=== PATIENT | male | born 1950 | race Two or more races ===

== ENCOUNTER 2016-06-25 18:14 | Emergency (ER) | payer OTHER, MEDICAID ==
[~2016-06-25] VITALS: Ht 170.2 cm; Wt 83.9 kg
[2016-06-25 18:56] VITALS: BP 141/85
[2016-06-25] MEDS ORDERED: LUMIGAN2.5 ML BOTH EYES (19:03)
[2016-06-25] MEDS ORDERED: ACTOS15 MG ORAL (19:03)
[2016-06-25] MEDS ORDERED: GLUCOTROL XL10 MG ORAL (19:04)
[2016-06-25] MEDS ORDERED: METFORMIN HCL500 M1 ORAL (19:04)
[2016-06-25] MEDS ORDERED: ATORVASTATIN CA40 MG ORAL (19:05)
[2016-06-25] MEDS ORDERED: FARXIGA5 MG PO (19:06)
[2016-06-25] MEDS ORDERED: Methocarbamol 750mg tab ORAL ONE (19:15)
[2016-06-25] MEDS ORDERED: traMADol 50mg tab ORAL ONE (19:15)
[2016-06-25] MEDS ORDERED: TRAMADOL HCL50 MG ORAL (19:25)
[2016-06-25] MEDS ORDERED: IBUPROFEN600 MG ORAL (19:25)
[2016-06-25] MEDS ORDERED: ROBAXIN-750750 MG PO (19:25)
[2016-06-25 19:32] VITALS: BP 141/85
--- NOTE | 2016-06-25 19:35 | Emergency Room Report ---
History of Present Illness General Chief Complaint: Lower Back Pain or Injury Source: Patient (RAJIV HAMMONDS) Present Illness HPI The patient is a 65-year-old male presenting with left lower back pain which occurred 4 days prior at work. The patient states that he slipped on stairs and caught himself before falling but felt a pain in the left lower back. The patient describes the pain as a 10 out of 10 dull/pulling sensation. The patient has tried Tylenol at home which hasn't helped. Patient denies any radiating pain denies numbness or tingling. The patient states that he has been unable to walk normally due to the pain. Patient denies prior injury to this area and denies any other symptoms (RAJIV HAMMONDS) Allergies: Coded Allergies: No Known Allergies (Unverified , 06/25/16) Patient History Past Medical History: see triage record Pertinent Family History: none Reviewed Nursing Documentation: PMH: Agreed, PSxH: Agreed (RAJIV HAMMONDS) Nursing Documentation-PMH Past Medical History: No History, Except For Hx Diabetes: Yes (RAJIV HAMMONDS) Review of Systems All Other Systems: negative except mentioned in HPI (RAJIV HAMMONDS) Physical Exam Vital Signs Date Time Temp Pulse Resp B/P Pulse Ox O2 Delivery O2 Flow Rate FiO2 06/25/16 18:49 99.0 98 16 141/85 93 Room Air Sp02 EP Interpretation: reviewed, normal General Appearance: no apparent distress, alert, GCS 15, non-toxic Head: normocephalic, atraumatic Eyes: bilateral eye PERRL, bilateral eye normal inspection ENT: hearing grossly normal, normal pharynx, no angioedema, normal voice Musculoskeletal: no calf tenderness, decreased range of motion - of back, tender - TTP over paraspinous muscles Neurologic: alert, oriented x3, responsive, motor strength/tone normal, sensory intact, speech normal Psychiatric: judgement/insight normal, memory normal, mood/affect normal, no suicidal/homicidal ideation Reflexes: 3+ bicep (R), 3+ bicep (L), 3+ tricep (R), 3+ tricep (L), 3+ knee (R) , 3+ knee (L) Skin: normal color, no rash, warm/dry, well hydrated Lymphatic: no adenopathy (RAJIV HAMMONDS P.AJuliet) Medical Decision Making [facility]. Burrell is my supervising physician. Patient management was discussed with my supervising physician (RAJIV HAMMONDS) Medicare Attestation The history of Jovanny Saucedo has been reviewed and management options for him have been examined and discussed by Sulaiman Burrell. I have personally examined and interviewed the patient. (SULAIMAN BURRELL M.D.) Diagnostic Impression: Primary Impression: Muscle strain ER Course The patient is a 65-year-old male presenting with left lower back pain which occurred 4 days prior at work Ddx considered include but not limited to sprain/strain, fracture, contusion, sciatica, disc herniation PE: Vitals within normal limits. No apparent distress. Lumbar spine: No obvious deformity. Normal curvature. No midline tenderness. Limited AROM due to pain. There is tenderness to palpation over paraspinous muscles only SILT. Pt given robaxin and tramadol for pain Pt will be ID'ed home with prescription for tramadol, robaxin, and motrin. ER precautions given (RAJIV HAMMONDS P.A.) Last Vital Signs Date Time Temp Pulse Resp B/P Pulse Ox O2 Delivery O2 Flow Rate FiO2 06/25/16 18:56 99.0 98 16 141/85 93 Room Air Status: improved (RAJIV HAMMONDS P.A.) Disposition: HOME, SELF-CARE Condition: Improved Scripts Tramadol Hcl* (ULTRAM*) 50 Mg Tablet 50 MG ORAL Q6H Y for For Pain, #8 TAB 0 Refills Prov: TERZIAN,RAJIV P.A. 06/25/16 Methocarbamol* (ROBAXIN-750*) 750 Mg Tablet 750 MG PO TID, #21 TAB 0 Refills Prov: TERZIAN,RAJIV P.A. 06/25/16 Ibuprofen* (MOTRIN*) 600 Mg Tablet 600 MG ORAL Q8H Y for For Pain, #30 TAB 0 Refills Prov: TERZIAN,RAJIV P.A. 06/25/16 Patient Instructions: Back Pain, Adult, Muscle Strain Additional Instructions: I discussed my findings with the patient. All questions and concerns have been answered. Treatment and medication compliance have been addressed. I advised the patient that they need to follow up with PMD in 3-5 days. Return to ED if pain remains or worsens, numbness or tingling occurs, new rash is noticed, fever is noticed, or if needed for any reason. Patient verbalized understanding of discharge instructions. RAJIV HAMMONDS Jun 25, 2016 19:35 SULAIMAN BURRELL M.D. Jul 01, 2016 07:33
== END 2016-06-25 19:35 | disposition home or self-care (01) ==
LOC: EMR 18:50
DX: S39.012A Strain of muscle, fascia and tendon of lower back, initial encounter (principal); E11.9 Type 2 diabetes mellitus without complications; W18.30XA Fall on same level, unspecified, initial encounter; Y92.9 Unspecified place or not applicable; Y99.8 Other external cause status
CPT/HCPCS: 99284

== ENCOUNTER 2016-09-07 20:52 | Emergency (ER) | payer MEDICARE, MEDICAID ==
[~2016-09-07] VITALS: Ht 170.2 cm; Wt 84.8 kg
[~2016-09-07 20:52] MED LIST: ACTOS15 MG ORAL; ATORVASTATIN CA40 MG ORAL; FARXIGA5 MG PO; GLUCOTROL XL10 MG ORAL; IBUPROFEN600 MG ORAL; LUMIGAN2.5 ML BOTH EYES; METFORMIN HCL500 M1 ORAL; ROBAXIN-750750 MG PO; TRAMADOL HCL50 MG ORAL
[2016-09-07] MEDS ORDERED: XALATAN2.5 ML BOTH EYES (21:26)
--- NOTE | 2016-09-07 21:27 | Emergency Room Report ---
History of Present Illness General Chief Complaint: Medication Refill Source: Patient Present Illness HPI This is a 66-year-old male with a history of glaucoma. 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 He is out of his eye drops. His primary care has not make a referral yet. Patient denies any other symptom. Denies any fever chills denies any nausea vomiting. He called his insurance and was told to come to the ER for the refill medication. Allergies: Coded Allergies: No Known Allergies (Unverified , 06/25/16) Patient History Past Medical History: see triage record, old chart reviewed, DM Past Surgical History: other Pertinent Family History: none Social History: Denies: smoking Immunizations: other Reviewed Nursing Documentation: PMH: Agreed, PSxH: Agreed Nursing Documentation-PMH Hx Diabetes: Yes Review of Systems Eye: Denies: blurred vision, eye pain ENT: Denies: ear pain, nose congestion, throat swelling Respiratory: Denies: cough, shortness of breath Cardiovascular: Denies: chest pain, palpitations Gastrointestinal: Denies: abdominal pain, diarrhea, nausea, vomiting Musculoskeletal: Denies: back pain, joint pain Skin: Denies: rash Neurological: Denies: headache, numbness Endocrine: Denies: increased thirst, increased urine Hematologic/Lymphatic: Denies: easy bruising All Other Systems: negative except mentioned in HPI Physical Exam Vital Signs Date Time Temp Pulse Resp B/P Pulse Ox O2 Delivery O2 Flow Rate FiO2 09/07/16 21:05 98.1 80 18 136/80 98 Room Air vitals normal Sp02 EP Interpretation: reviewed, normal General Appearance: well appearing, no apparent distress, alert Head: normocephalic, atraumatic Eyes: bilateral eye EOMI, bilateral eye PERRL ENT: hearing grossly normal, normal pharynx Neck: full range of motion, supple, no meningismus Respiratory: chest non-tender, lungs clear, normal breath sounds Cardiovascular #1: regular rate, rhythm, no murmur Gastrointestinal: normal bowel sounds, non tender, no mass, no organomegaly, no bruit, non-distended Musculoskeletal: back normal, gait/station normal, normal range of motion Psychiatric: mood/affect normal Skin: warm/dry Medical Decision Making Diagnostic Impression: Primary Impression: Encounter for medication refill ER Course Patient here for refill on his eyedrops. He has no new symptoms. We'll discharge home. Last Vital Signs Date Time Temp Pulse Resp B/P Pulse Ox O2 Delivery O2 Flow Rate FiO2 09/07/16 21:05 98.1 80 18 136/80 98 Room Air Status: unchanged Disposition: HOME, SELF-CARE Condition: Stable Scripts Latanoprost* (XALATAN*) 2.5 Ml Drops 1 DROP BOTH EYES BEDTIME, #2.5 ML 0 Refills Prov: BARON COSBY M.D. 09/07/16 Patient Instructions: Medicine Refill at the Emergency Department Additional Instructions: Followup with your DrJuliet in 7 days. Return if symptom worsen. See your DrJuliet for refills. BARON COSBY M.D. September 07, 2016 21:27
[2016-09-07 21:30] VITALS: BP 136/80
== END 2016-09-07 21:45 | disposition home or self-care (01) ==
LOC: EMR 21:37
DX: Z76.0 Encounter for issue of repeat prescription (principal); H40.9 Unspecified glaucoma; E11.9 Type 2 diabetes mellitus without complications
CPT/HCPCS: 99282

== ENCOUNTER 2017-01-08 02:00 | Emergency (ER) | payer MEDICAID, MEDICARE ==
[~2017-01-08] VITALS: Ht 172.7 cm; Wt 72.6 kg
[~2017-01-08 02:00] MED LIST changes: +XALATAN2.5 ML BOTH EYES
[2017-01-08] MEDS ORDERED: METFORMIN HCL1000 M1 ORAL (02:09)
[2017-01-08] MEDS ORDERED: JANUVIA25 MG ORAL (02:09)
[2017-01-08] MEDS ORDERED: REPAGLINIDE2 MG PO (02:10)
[2017-01-08 02:12] VITALS: BP 132/87
[2017-01-08] MEDS ORDERED: GLIMEPIRIDE1 MG ORAL (02:12)
[2017-01-08] MEDS ORDERED: VITAMIN D400 INTLU ORAL (02:13)
--- NOTE | 2017-01-08 02:38 | Emergency Room Report ---
History of Present Illness General Chief Complaint: Nausea Source: Patient Present Illness HPI Is a 66-year-old male with a history hypertension and diabetes. He presents with chief complaint of nausea and vomiting. Onset was about 30 minutes ago. He had one episode vomiting. He fell better now. [place] some queasiness to her stomach. No diarrhea. No his breath or chest pain. No fever or chills. Denies any other complaint. Minimal pain. Allergies: Coded Allergies: No Known Allergies (Unverified , 06/25/16) Patient History Past Medical History: see triage record, old chart reviewed, DM, HTN Past Surgical History: other Pertinent Family History: none Social History: Denies: smoking Immunizations: other Reviewed Nursing Documentation: PMH: Agreed, PSxH: Agreed Nursing Documentation-PMH Hx Diabetes: Yes Review of Systems Eye: Denies: eye pain, blurred vision ENT: Denies: ear pain, nose congestion, throat swelling Respiratory: Denies: cough, shortness of breath Cardiovascular: Denies: chest pain, palpitations Gastrointestinal: Reports: abdominal pain, nausea, vomiting, Denies: diarrhea Musculoskeletal: Denies: back pain, joint pain Skin: Denies: rash Neurological: Denies: headache, numbness Endocrine: Denies: increased thirst, increased urine Hematologic/Lymphatic: Denies: easy bruising All Other Systems: negative except mentioned in HPI Physical Exam Vital Signs Date Time Temp Pulse Resp B/P (MAP) Pulse Ox O2 Delivery O2 Flow Rate FiO2 01/08/17 02:06 98.2 86 16 132/87 98 Room Air vitals normal Sp02 EP Interpretation: reviewed, normal General Appearance: well appearing, no apparent distress, alert Head: normocephalic, atraumatic Eyes: bilateral eye PERRL, bilateral eye EOMI ENT: hearing grossly normal, normal pharynx Neck: full range of motion, supple, no meningismus Respiratory: chest non-tender, lungs clear, normal breath sounds Cardiovascular #1: regular rate, rhythm, no murmur Gastrointestinal: non tender, no mass, no organomegaly, no bruit, non-distended , abnormal bowel sounds - Hyperactive Musculoskeletal: back normal, gait/station normal, normal range of motion Psychiatric: mood/affect normal Skin: warm/dry Medical Decision Making Diagnostic Impression: Primary Impression: Abdominal pain Qualified Codes: R10.84 - Generalized abdominal pain Additional Impressions: Pancreatitis, acute Qualified Codes: K85.90 - Acute pancreatitis without necrosis or infection, unspecified Nausea and vomiting in adult patient ER Course Patient present with abdominal pain. Lipase is elevated. Right now he is pain- free. No nausea no vomiting now. He fell better now. We'll discharge home. Lab Results Impression labs slightly elevated lipase Last Vital Signs Date Time Temp Pulse Resp B/P (MAP) Pulse Ox O2 Delivery O2 Flow Rate FiO2 01/08/17 02:06 98.2 86 16 132/87 98 Room Air Status: improved Disposition: HOME, SELF-CARE Condition: Stable Patient Instructions: Nausea and Vomiting, Adult Additional Instructions: Followup with your Dr. in 7 days. Return if worse. BARON COSBY M.D. Jan 08, 2017 02:38
[2017-01-08 03:12] LABS: BASOPHILS % (AUTO) 0.5 % (0.0-2.0); EOSINOPHILS % (AUTO) 2.7 % (0.0-3.0); LYMPHOCYTES % (AUTO) 18.6 % (20.0-45.0); MEAN CORPUSCULAR HEMOGLOBIN 30.5 PG (27.0-31.0); MEAN CORPUSCULAR HGB CONC 32.8 G/DL (32.0-36.0); MEAN CORPUSCULAR VOLUME 93 FL (80-99); MEAN PLATELET VOLUME 7.2 FL (6.5-10.1); MONOCYTES % (AUTO) 6.1 % (1.0-10.0); PLATELET COUNT 246 K/UL (150-450); RED BLOOD COUNT 4.76 M/UL (4.70-6.10); RED CELL DISTRIBUTION WIDTH 11.2 % (11.6-14.8); WHITE BLOOD COUNT 11.6 K/UL (4.8-10.8)
[2017-01-08 03:18] LABS: APPEARANCE,URINE CLEAR; KETONES,URINE NEGATIVE (NEGATIVE); LEUKOCYTE ESTERASE ,URINE NEGATIVE (NEGATIVE); NITRITE,URINE NEGATIVE (NEGATIVE); PH,URINE 5 (4.5-8.0); UROBILINOGEN,URINE NORMAL MG/DL (0.0-1.0)
[2017-01-08 03:20] LABS: PROTEIN,URINE NEGATIVE (NEGATIVE)
[2017-01-08 03:29] LABS: ALANINE AMINOTRANSFERASE 16 U/L (3-41); ALBUMIN/GLOBULIN RATIO 1.3 (1.0-2.7); ANION GAP 13 (5-15); ASPARTATE AMINO TRANSFERASE 14 U/L (5-40); CALCIUM 10.5 mg/dL (8.6-10.2); CARBON DIOXIDE 27 mEQ/L (20-30); CHLORIDE 98 mEQ/L (98-107); GLOMERULAR FILTRATION RATE > 60 mL/min (>60); HEMOLYSIS 2; POTASSIUM 4.8 mEQ/L (3.4-4.9); SODIUM 138 mEQ/L (135-145); TOTAL PROTEIN 7.3 g/dL (6.6-8.7)
[2017-01-08 03:38] LABS: LIPASE 409 U/L (< 60)
[2017-01-08] MEDS ORDERED: ZOFRAN4 MG ORAL (03:47)
[2017-01-08 03:58] VITALS: BP 132/87
== END 2017-01-08 04:00 | disposition home or self-care (01) ==
LOC: EMR 02:37
DX: R10.9 Unspecified abdominal pain (principal); K85.90 Acute pancreatitis without necrosis or infection, unspecified; R11.2 Nausea with vomiting, unspecified; E11.9 Type 2 diabetes mellitus without complications
CPT/HCPCS: 36415; 80053; 81003; 82962; 83690; 85025; 96374; 96375; 99284; J2405

== ENCOUNTER 2017-04-27 15:45 | Emergency (ER) | payer MEDICARE ==
[~2017-04-27] VITALS: Ht 170.2 cm; Wt 94.8 kg
[~2017-04-27 15:45] MED LIST changes: +GLIMEPIRIDE1 MG ORAL; +JANUVIA25 MG ORAL; +METFORMIN HCL1000 M1 ORAL; +REPAGLINIDE2 MG PO; +VITAMIN D400 INTLU ORAL; +ZOFRAN4 MG ORAL
[2017-04-27 16:04] VITALS: BP 156/79
[2017-04-27] MEDS ORDERED: GLIPIZIDE5 MG ORAL (16:14)
[2017-04-27] MEDS ORDERED: LATANOPROST2.5 ML BOTH EYES (16:15)
[2017-04-27] MEDS ORDERED: ASPIRIN81 MG ORAL (16:15)
[2017-04-27] MEDS ORDERED: LANTUS SOL100 UNIT/1 SUBQ (16:15)
[2017-04-27] MEDS ORDERED: Sodium Chloride 500ML 500 ML IV ONE (16:34)
[2017-04-27] MEDS ORDERED: ACETAMINOPHEN-1 EAC1 ORAL (17:57)
[2017-04-27 18:02] VITALS: BP 139/72
--- NOTE | 2017-04-27 23:08 | Emergency Room Report ---
History of Present Illness General Chief Complaint: Generalized Weakness Source: Patient Present Illness HPI 66-year-old male presents ED complaining of tingling sensation in his arm x3 days. Denies any weakness to the arm. Denies any pain. Patient also complains of some neck stiffness and pain. 4/10, throbbing, nonradiating. Denies any chest pain or shortness of breath. Denies any surgeries or facial droop. No other aggravating or leading factors. Denies any other associated symptoms Allergies: Coded Allergies: No Known Allergies (Unverified , 06/25/16) Patient History Past Medical History: DM Past Surgical History: none Pertinent Family History: none Social History: Denies: smoking, alcohol use, drug use Immunizations: UTD Reviewed Nursing Documentation: PMH: Agreed, PSxH: Agreed Nursing Documentation-PMH Past Medical History: No History, Except For Hx Cardiac Problems: No Hx Hypertension: No Hx Pacemaker: No Hx Asthma: No Hx COPD: No Hx Diabetes: Yes Hx Cancer: No Hx Gastrointestinal Problems: No Hx Dialysis: No History Of Psychiatric Problem: No Hx Neurological Problems: No Hx Cerebrovascular Accident: No Hx Seizures: No Review of Systems All Other Systems: negative except mentioned in HPI Physical Exam Vital Signs Date Time Temp Pulse Resp B/P (MAP) Pulse Ox O2 Delivery O2 Flow Rate FiO2 04/27/17 16:04 97.9 87 16 156/79 97 Room Air Sp02 EP Interpretation: reviewed, normal General Appearance: no apparent distress, alert, GCS 15, non-toxic Head: normocephalic, atraumatic Eyes: bilateral eye normal inspection, bilateral eye PERRL ENT: hearing grossly normal, normal pharynx, no angioedema, normal voice Neck: full range of motion, supple/symm/no masses Respiratory: chest non-tender, lungs clear, normal breath sounds, speaking full sentences Cardiovascular #1: regular rate, rhythm, no edema Cardiovascular #2: 2+ carotid (R), 2+ carotid (L), 2+ radial (R), 2+ radial (L) , 2+ dorsalis pedis (R), 2+ dorsalis pedis (L) Gastrointestinal: normal bowel sounds, non tender, soft, non-distended, no guarding, no rebound Rectal: deferred Genitourinary: normal inspection, no CVA tenderness Musculoskeletal: back normal, gait/station normal, normal range of motion, non- tender Neurologic: alert, oriented x3, responsive, terrazzo helper III-XII nml as tested, motor strength/tone normal, sensory intact, speech normal Psychiatric: judgement/insight normal, memory normal, mood/affect normal, no suicidal/homicidal ideation Reflexes: 3+ bicep (R), 3+ bicep (L), 3+ tricep (R), 3+ tricep (L), 3+ knee (R) , 3+ knee (L) Skin: normal color, no rash, warm/dry, well hydrated Lymphatic: no adenopathy Medical Decision Making Diagnostic Impression: Primary Impression: Cervical radiculopathy ER Course Hospital Course 66-year-old male presents ED complaining of tingling sensation to left arm, neck pain/stiffness Differential diagnoses include: neck strain, shoulder strain, dislocation/ fracture Clinical course Patient placed on stretcher. After initial history and physical exam reveals middle-aged male in no acute distress. On exam there is no midline neck tenderness. Full range of motion noted. 5 out of 5 motor strength to the left upper extremity. No facial droop or slurred speech. Cranial nerves II through XII grossly intact. I asked patient to raise his left arm in place his hand behind his head. Patient states the numbing sensation immediately resolved. Clinical findings consistent with cervical radiculopathy I ordered CT head and CT C-spine CT head unremarkable. CT C-spine shows degenerative changes which likely explaining the radiculopathy Diagnosis - cervical radiculopathy Stable and discharged to home with prescription for Tylenol #3. Followup with PMD. Return to ED if symptoms recur or worsen CT/MRI/US Diagnostic Results CT/MRI/US Diagnostic Results #1: Imaging Test Ordered: CT Head Impression no acute process CT/MRI/US Diagnostic Results #2: Imaging Test Ordered: CT C spine Impression degenerative changes Last Vital Signs Date Time Temp Pulse Resp B/P (MAP) Pulse Ox O2 Delivery O2 Flow Rate FiO2 04/27/17 18:02 97.9 87 17 139/72 99 Room Air Status: improved Disposition: HOME, SELF-CARE Condition: Stable Scripts Acetaminophen With Codeine (T#3) (TYLENOL #3 TAB*) Y Tab 1 TAB ORAL Q8H Y for For Pain, #20 TAB Prov: NISHI BURRELL M.D. 04/27/17 Patient Instructions: Cervical Radiculopathy, [id number] NISHI BURRELL M.D. Apr 27, 2017 23:08
--- NOTE | 2017-04-28 09:53 | Diagnostic Imaging Report ---
Indication: Left arm weakness x3 days Technique: Spiral acquisitions obtained through the cervical spine. No IV contrast utilized. Multiplanar reconstructions were generated. Total dose length product 1957.44 mGycm. CTDIvol(s) 70.38,19.53 mGy. Dose reduction achieved using automated exposure control. Comparison: none Findings: There is slight anterior offset of C7 on T1. Bony alignment is otherwise normal. No acute fractures. No dislocations. The vertebral body heights are preserved. At C3-4, there is mild to moderate degenerative disc narrowing. There is circumferential annular bulge which does not significant compromise the spinal canal but may slightly compromise the right lateral recess. There is mild narrowing of the right neural foramen. At C4-5, the disc spaces preserved. There is mild narrowing the right neural foramen. There is mild central posterior annular bulge which does not significantly narrow the spinal canal. At C5-6, there is broadbase central and left paracentral posterior disc protrusion, which may impinge on the anterior and anterolateral aspect of the cord, results in at least mild narrowing of the spinal canal. There is moderate bilateral neural foraminal stenosis due to facet arthrosis. There is mild degenerative disc narrowing at this level. At C6-7, there is moderate to severe degenerative disc narrowing. There is broad-based posterior disc protrusion which results in mild narrowing of the spinal canal. There is moderate to severe bilateral neural foraminal stenosis due to facet and uncinate hypertrophy. At C7-T1, the disc spaces preserved. No significant disc bulge or protrusion, spinal stenosis, or neural foraminal stenosis. Multiple partially calcified nodules are seen within the right thyroid lobe, poorly defined but probably measuring over a centimeter. There is anterior translocation of the mandibular condyles out of the glenoid fossa. Impression: No acute bony trauma Ill-defined right lobe thyroid nodules. Consider ultrasound for better characterization Degenerative changes, as detailed level basis above Anterior translocation of the mandibular condyles, probably due to open mouth position but subluxation not excluded. Correlate with clinical findings. This agrees with the preliminary interpretation provided overnight by [facility]. The CT scanner at [facility] is accredited by the [employer] and the scans are performed using protocols designed to limit radiation exposure to as low as reasonably achievable to attain images of sufficient resolution adequate for diagnostic evaluation.
--- NOTE | 2017-04-28 10:00 | Diagnostic Imaging Report ---
Indications: Weakness x3 days Technique: Spiral acquisitions obtained through the brain. Angled axial and coronal 5 x 5 mm slices were reconstructed. Total dose length product 1957.44 mGycm. CTDI vol(s) 70.38,19.53 mGy. Dose reduction achieved using automated exposure control Comparison: None. Findings: No acute intracranial hemorrhage or edema, mass effect, or midline shift. There is minimal age-related enlargement of the ventricles and extra axial CSF spaces. 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 There is periventricular deep white matter low-attenuation consistent with chronic ischemic change. Otherwise normal alvarado-white differentiation. Intact calvarium. Visualized orbits and sinuses are unremarkable. Impression: Chronic and age-related changes, as described Multiple old infarcts Negative for acute intracranial bleed or mass effect This agrees with the preliminary interpretation provided overnight by [facility]. The CT scanner at [facility] is accredited by the [employer] and the scans are performed using protocols designed to limit radiation exposure to as low as reasonably achievable to attain images of sufficient resolution adequate for diagnostic evaluation.
--- NOTE | 2017-04-30 00:26 | Cardiology Report ---
APPROVED REPORT EKG Measurement Heart [id number] Sinus rhythm with 1st degree AV block Left axis deviation Right bundle branch block Abnormal ECG
== END 2017-04-27 18:02 | disposition home or self-care (01) ==
LOC: EMR 16:52
DX: M50.11 Cervical disc disorder with radiculopathy, high cervical region (principal); E11.9 Type 2 diabetes mellitus without complications; Z86.73 Personal history of transient ischemic attack (TIA), and cerebral infarction without residual deficits
CPT/HCPCS: 70450; 72125; 93005; 99284

== ENCOUNTER 2017-07-02 17:50 | Emergency (ER) | payer MEDICARE, MEDICAID ==
[~2017-07-02] VITALS: Ht 170.2 cm; Wt 89.4 kg
[~2017-07-02 17:50] MED LIST changes: +ACETAMINOPHEN-1 EAC1 ORAL; +ASPIRIN81 MG ORAL; +GLIPIZIDE5 MG ORAL; +LANTUS SOL100 UNIT/1 SUBQ; +LATANOPROST2.5 ML BOTH EYES
--- NOTE | 2017-07-02 18:45 | Emergency Room Report ---
History of Present Illness General Chief Complaint: General Complaint Source: Patient Present Illness HPI 66 YO Male presents to the ED c/O significant generalized weakness and cough x 2 days. Denies pain at this time. Denies sore throat, ear pain, high fevers, lethargy, neck pain/stiffness, irritability, photophobia dehydration, N/V/D or abdominal pain. Denies Cp, Palpitations, LOC, AMS, seizures, paresthesias, or changes in Hearing or vision , no Sudden severe AHN. Reports hx only of DM. Allergies: Coded Allergies: No Known Allergies (Unverified , 06/25/16) Patient History Past Medical History: see triage record, DM Past Surgical History: none Pertinent Family History: none Reviewed Nursing Documentation: PMH: Agreed, PSxH: Agreed Nursing Documentation-PMH Past Medical History: No History, Except For Hx Cardiac Problems: No Hx Hypertension: No Hx Pacemaker: No Hx Asthma: No Hx COPD: No Hx Diabetes: Yes Hx Cancer: No Hx Gastrointestinal Problems: No Hx Dialysis: No Hx Neurological Problems: No Hx Cerebrovascular Accident: No Hx Seizures: No Review of Systems All Other Systems: negative except mentioned in HPI Physical Exam Vital Signs Date Time Temp Pulse Resp B/P (MAP) Pulse Ox O2 Delivery O2 Flow Rate FiO2 07/02/17 18:01 99.5 109 20 139/74 96 Room Air 99.5 Sp02 EP Interpretation: reviewed, normal General Appearance: no apparent distress, alert, GCS 15, non-toxic Head: normocephalic, atraumatic ENT: hearing grossly normal, normal voice, TMs + canals normal, uvula midline, moist mucus membranes, pharyngeal erythema Neck: full range of motion Respiratory: chest non-tender, lungs clear, normal breath sounds, no rhonchi, no respiratory distress, speaking full sentences Cardiovascular #1: regular rate, rhythm, no edema, tachycardia Gastrointestinal: non tender, soft Musculoskeletal: back normal, gait/station normal, normal range of motion, non- tender Neurologic: alert, oriented x3, responsive, motor strength/tone normal, sensory intact, speech normal, grossly normal Psychiatric: judgement/insight normal Skin: normal color, no rash, warm/dry, well hydrated Lymphatic: no adenopathy Medical Decision Making PA Attestation Dr. Coffman is my supervising Physician whom patient management has been discussed with. Diagnostic Impression: Primary Impression: URI, acute Additional Impression: Weakness generalized ER Course 66 YO Male presents to the ED c/O significant generalized weakness and cough x 2 days. Denies pain at this time. Denies sore throat, ear pain, high fevers, lethargy, neck pain/stiffness, irritability, photophobia dehydration, N/V/D or abdominal pain. Denies Cp, Palpitations, LOC, AMS, seizures, paresthesias, or changes in Hearing or vision , no Sudden severe AHN. Reports hx only of DM. Ddx considered but are not limited to : MS, MG, [place], [place], drug intoxication, hypovolemia, infection, rhabdomylosis, ETOH, CVA/TIA, NMS, hyperglycemia Vital signs: Tachycardic otherwise are WNL, pt. is afebrile H&PE are most consistent with URI symptoms in advanced age. ORDERS: -CBC: unremarkable -CMP: elevated glucose, electrolytes ok -CXR: unremarkable Troponin: WNL 0.00 CK: WNL -EKG: Sinus tachycardia with RBBB, and 1st degree AV block. presence of Q- waves. ED INTERVENTIONS: -500cc NS d/w pt. EKG findings and encouraged Cardiac Follow up. DISCHARGE: At this time pt. is stable for d/c to home. Will provide printed patient care instructions, and any necessary prescriptions. Care plan and follow up instructions have been discussed with the patient prior to discharge. Labs Test 07/02/17 19:02 White Blood Count 6.6 K/UL (4.8-10.8) Red Blood Count 5.18 M/UL (4.70-6.10) Hemoglobin 16.1 G/DL (14.2-18.0) Hematocrit 46.7 % (42.0-52.0) Mean Corpuscular Volume 90 FL (80-99) Mean Corpuscular Hemoglobin 31.1 PG (27.0-31.0) Mean Corpuscular Hemoglobin Concent 34.5 G/DL (32.0-36.0) Red Cell Distribution Width 11.0 % (11.6-14.8) Platelet Count 179 K/UL (150-450) Mean Platelet Volume 7.0 FL (6.5-10.1) Neutrophils (%) (Auto) 69.5 % (45.0-75.0) Lymphocytes (%) (Auto) 20.0 % (20.0-45.0) Monocytes (%) (Auto) 9.3 % (1.0-10.0) Eosinophils (%) (Auto) 0.2 % (0.0-3.0) Basophils (%) (Auto) 1.1 % (0.0-2.0) Sodium Level 130 MMOL/L (136-145) Potassium Level 4.1 MMOL/L (3.5-5.1) Chloride Level 94 MMOL/L (98-107) Carbon Dioxide Level 28 MMOL/L (21-32) Anion Gap 8 mmol/L (5-15) Blood Urea Nitrogen 12 mg/dL (7-18) Creatinine 1.3 MG/DL (0.55-1.30) Estimat Glomerular Filtration Rate 55.2 mL/min (>60) Glucose Level 264 MG/DL (74-106) Calcium Level 9.5 MG/DL (8.5-10.1) Total Bilirubin 0.5 MG/DL (0.2-1.0) Aspartate Amino Transf (AST/SGOT) 50 U/L (15-37) Alanine Aminotransferase (ALT/SGPT) 67 U/L (12-78) Alkaline Phosphatase 99 U/L (46-116) Total Creatine Kinase 177 U/L (26-308) Troponin I 0.000 ng/mL (0.000-0.056) Total Protein 7.8 G/DL (6.4-8.2) Albumin 3.7 G/DL (3.4-5.0) Globulin 4.1 g/dL Albumin/Globulin Ratio 0.9 (1.0-2.7) EKG Diagnostic Results EP Interpretation: Dr. Coffman Rate: tachycardiac Rhythm: NSR ST Segments: other - RBBB, and 1st Degree AV Block. ASA given to the pt in ED: No PA Scribe Text this interpretation was scribed by TREVIN Mauro Chest X-Ray Diagnostic Results Chest X-Ray Diagnostic Results : Chest X-Ray Ordered: Yes # of Views/Limited/Complete: 1 View PA Xray: Interpretation reviewed, by supervising MD, and agrees with findings. Interpretation: no consolidation, no effusion, no pneumothorax, no acute cardiopulmonary disease Impression: No acute disease Electronically Signed by: Yvette Mauro PA-C Last Vital Signs Date Time Temp Pulse Resp B/P (MAP) Pulse Ox O2 Delivery O2 Flow Rate FiO2 07/02/17 18:01 99.5 109 20 139/74 96 Room Air 99.5 Disposition: HOME, SELF-CARE Condition: Stable Scripts Guaifenesin (Guaifenesin) 1,200 Mg Tab.er.12h 1200 MG PO BID, #10 TAB Prov: Yvette Mauro 07/02/17 Codeine/Promethazine Hcl* (PROMETHAZINE-CODEINE SYRUP*) 118 Ml Syrup 5 ML ORAL Q6H Y for For Cough, #120 ML 0 Refills Prov: Yvette Mauro 07/02/17 Patient Instructions: Upper Respiratory Infection, Adult, [id number], Weakness, [id number] Additional Instructions: Take medications as directed. Follow up with a Primary Care Provider with-in 3 days, [employer] Referral recommended Return sooner to ED if new symptoms occur, or current symptoms become worse. - Please note that this Emergency Department Report was dictated using [employer] Medicalcustomer care coordinator technology software, occasionally this can lead to erroneous entry secondary to interpretation by the dictation equipment. Yvette Mauro Jul 02, 2017 18:45
[2017-07-02] MEDS ORDERED: Albuterol ud Inhalation HHN ONE (19:00)
[2017-07-02 19:17] LABS: BASOPHILS % (AUTO) 1.1 % (0.0-2.0); EOSINOPHILS % (AUTO) 0.2 % (0.0-3.0); HEMATOCRIT 46.7 % (42.0-52.0); HEMOGLOBIN 16.1 G/DL (14.2-18.0); MEAN CORPUSCULAR VOLUME 90 FL (80-99); MONOCYTES % (AUTO) 9.3 % (1.0-10.0); NEUTROPHILS % (AUTO) 69.5 % (45.0-75.0); PLATELET COUNT 179 K/UL (150-450); RED BLOOD COUNT 5.18 M/UL (4.70-6.10); WHITE BLOOD COUNT 6.6 K/UL (4.8-10.8)
[2017-07-02 19:31] LABS: ANION GAP 8 mmol/L (5-15); BLOOD UREA NITROGEN 12 mg/dL (7-18); CALCIUM 9.5 MG/DL (8.5-10.1); CARBON DIOXIDE 28 MMOL/L (21-32); CHLORIDE 94 MMOL/L (98-107); CREATININE 1.3 MG/DL (0.55-1.30); POTASSIUM 4.1 MMOL/L (3.5-5.1); SODIUM 130 MMOL/L (136-145)
[2017-07-02 19:36] LABS: ALANINE AMINOTRANSFERASE 67 U/L (12-78); ALBUMIN 3.7 G/DL (3.4-5.0); ALBUMIN/GLOBULIN RATIO 0.9 (1.0-2.7); ALKALINE PHOSPHATASE 99 U/L (46-116); ASPARTATE AMINO TRANSFERASE 50 U/L (15-37); BILIRUBIN,TOTAL 0.5 MG/DL (0.2-1.0); CREATINE KINASE 177 U/L (26-308)
[2017-07-02] MEDS ORDERED: Sodium Chloride 500ML 500 ML IV ONE (19:45)
[2017-07-02 20:22] VITALS: BP 139/74
[2017-07-02] MEDS ORDERED: GUAIFENESIN1200 MG PO (20:42)
[2017-07-02] MEDS ORDERED: PROMETHAZINE-C118 M1 ORAL (20:42)
--- NOTE | 2017-07-03 09:35 | Diagnostic Imaging Report ---
Indication: Chest pain Technique: XRAY Chest 1v Comparison: None. Findings: The cardiomediastinal silhouette is normal. The lungs are clear. There is no evidence of pleural fluid. The bones are unremarkable. Impression: Normal chest.
--- NOTE | 2017-07-03 16:11 | Cardiology Report ---
APPROVED REPORT EKG Measurement Heart [id number] Suspect arm lead reversal, interpretation assumes no reversal Sinus tachycardia with 1st degree AV block Right bundle branch block Possible Lateral infarct, age undetermined Inferior infarct, age undetermined Abnormal ECG
== END 2017-07-02 21:01 | disposition home or self-care (01) ==
LOC: EMR 18:10
DX: J06.9 Acute upper respiratory infection, unspecified (principal); R53.1 Weakness; E11.9 Type 2 diabetes mellitus without complications
CPT/HCPCS: 36415; 71045; 80053; 82550; 84484; 85025; 93005; 94640; 94664; 96374; 99284; J7040

== ENCOUNTER 2020-07-27 09:02 | Emergency (ER) | payer MEDICARE, MEDICAID ==
[~2020-07-27] VITALS: Ht 170.2 cm; Wt 95.3 kg
[~2020-07-27 09:02] MED LIST changes: +GUAIFENESIN1200 MG PO; +PROMETHAZINE-C118 M1 ORAL
[2020-07-27 09:28] VITALS: BP 142/83
--- NOTE | 2020-07-27 09:28 | NUR ---
Patient reported to the ER with right leg pain which started 3-4 days ago. No precipitated factors causing the pain. Walked into triage with a cane which he stated that he started using today because of his foot pain. Reported that he has taken the COVID vaccine x 2 doses -06/02, and 07/03/20 (Moderna). AAOX4 NKA Medical hx: DM, high cholesterol, neuropathic pain
--- NOTE | 2020-07-27 09:38 | Emergency Room Report ---
History of Present Illness General Chief Complaint: Pain Source: Patient Present Illness HPI Patient presents with 4 days of right heel pain. He denies any trauma. He has never had this problem before. The patient does take gabapentin. He has not taken any other medicine for pain recently. Denies fevers or chills. There is no warmth in the skin. He has been using ketoconazole that was prescribed by his therapy director. This does not change the pain. He rates the pain 8/10 at this time and aching. It is worse when he moves his foot. He started using a cane which is helped. Patient has a history of right knee problems from playing football when he was younger. His discomfort in the knee is unchanged. Patient is diabetic and takes insulin along with pills. He states his blood romero gars have been 103. The patient received his second dose of Covid vaccine 2 weeks ago. He denies any other symptoms related to Covid. He is occasionally had nocturia x1 but denies any dysuria. Allergies: Coded Allergies: No Known Allergies (Unverified , 06/25/16) COVID-19 Screening Contact w/high risk pt: No Experienced COVID-19 symptoms?: No COVID-19 Testing performed TRUCK CLEANER: No COVID-19 Screening: Negative COVID-19 COVID-19 Testing Source: not tested Patient History Past Medical History: see triage record, DM Social History: Denies: smoking Social History Narrative brought by son Reviewed Nursing Documentation: PMH: Agreed; PSxH: Agreed Nursing Documentation-PMH Hx Cardiac Problems: No Hx Hypertension: No Hx Pacemaker: No Hx Asthma: No Hx COPD: No Hx Diabetes: Yes Hx Cancer: No Hx Gastrointestinal Problems: No Hx Dialysis: No Hx Neurological Problems: No Hx Cerebrovascular Accident: No Hx Seizures: No Review of Systems All Other Systems: negative except mentioned in HPI Physical Exam Vital Signs Date Time Temp Pulse Resp B/P (MAP) Pulse Ox O2 Delivery O2 Flow Rate FiO2 07/27/20 09:12 98.4 89 12 142/83 (102) 95 Room Air Sp02 EP Interpretation: reviewed, normal General Appearance: well appearing, no apparent distress, GCS 15 Head: normocephalic Eyes: bilateral eye normal inspection, bilateral eye PERRL ENT: moist mucus membranes Cardiovascular #1: regular rate, rhythm Cardiovascular #2: 2+ dorsalis pedis (R) - Capillary fill Gastrointestinal: normal inspection Musculoskeletal: gait/station normal - Slight limp, tenderness - Heel area and slight amount of Achilles tendon Neurologic: alert, grossly normal Psychiatric: mood/affect normal Skin: normal color, no rash, warm/dry, other - No erythema or warmth Medical Decision Making Diagnostic Impression: Primary Impression: Pain of right heel Additional Impressions: Plantar fasciitis of right foot History of diabetes mellitus ER Course Patient presents with 4 days of right heel pain. Differential includes gout, heel spur, sprain, plantar fasciitis, Achilles tendinitis, cellulitis amongst others. Based on exam infection and gout are less likely. X-rays indicated. In addition patient will be given a dose of Motrin. The fact he has knee problems on that side may predispose him to mechanical issues. Knee does not have problems and neither does his left heel. His diabetes seems to be well controlled. Review of prior creatinine = 1.3. Xrays with ca++ Achilles tendon and small bone spur. Matheus applied by me. Tension good with some relief. Distal neurovasc checked by me and normal. Discussed treatment plan with patient and need for follow up. Other X-Ray Diagnostic Results Other X-Ray Diagnostic Results : X-Ray ordered: R foot # of Views/Limited Vs Complete: 3 View Indication: Pain EP Interpretation: Yes Interpretation: no dislocation, no soft tissue swelling, no fractures, other - small spur and ca++ in achilles tendon Last Vital Signs Date Time Temp Pulse Resp B/P (MAP) Pulse Ox O2 Delivery O2 Flow Rate FiO2 07/27/20 09:28 98.4 89 12 142/83 95 Room Air Scripts Acetaminophen* (TYLENOL EXTRA STRENGTH*) 500 Mg Tablet 1000 MG ORAL Q6H PRN for For Pain, #20 TAB Prov: Juan Antonio Portre MD 07/27/20 Ibuprofen* (MOTRIN*) 600 Mg Tablet 600 MG ORAL Q8H PRN for FOR PAIN, #20 TAB 0 Refills Prov: Juan Antonio Porter MD 07/27/20 Juan Antonio Porter MD Jul 27, 2020 09:38
[2020-07-27] MEDS ORDERED: ACETAMINOPHEN500 MG ORAL (09:56)
[2020-07-27] MEDS ORDERED: IBUPROFEN600 M1 ORAL (09:56)
--- NOTE | 2020-07-27 10:36 | Diagnostic Imaging Report ---
EXAM: XR Right Foot Complete, 3 or More Views CLINICAL HISTORY: PAIN TECHNIQUE: Frontal, lateral and oblique views of the right foot. COMPARISON: No relevant prior studies available. FINDINGS: Bones/joints: No acute fracture. Plantar and posterior calcaneal spurs Soft tissues: No radiodense foreign body. IMPRESSION: No acute fracture.
== END 2020-07-27 10:03 | disposition home or self-care (01) ==
LOC: EMR 09:44
DX: M72.2 Plantar fascial fibromatosis (principal); E11.9 Type 2 diabetes mellitus without complications; M25.571 Pain in right ankle and joints of right foot; Z79.4 Long term (current) use of insulin
CPT/HCPCS: 99283